=== PATIENT | female | born 1945 | race Caucasian/White ===

== ENCOUNTER 2019-11-04 12:39 | Outpatient (CLI) | payer MEDICARE, BC ==
[~2019-11-04 12:39] MED LIST: Magnevist 469MG/ML 20 ML VIAL ONE
[2019-11-04 13:17] LABS: Estimated GFR-MDRD - POC Greater than 90
--- NOTE | 2019-11-04 14:25 | MRI ---
MRI BRAIN WITH AND WITHOUT IV CONTRAST: 11/04/19 HISTORY: 73-year-old female with essential tremors, ataxia, headaches. COMPARISON: None. FINDINGS: No restricted diffusion is seen. No evidence of infarct, hemorrhage, intra-axial mass, midline shift or abnormal extra-axial fluid collections are seen. The ventricular size is appropriate and the basil ar cisterns patent. There is a right sided 1.5 x 1.5 x 1 cm enhancing extra-axial mass with a dual ta il at the level of the vertex anteriorly, consistent with meningioma. No adjacent edema is seen. Ther e is fluid in the right mastoid air cells. The visualized paranasal sinuses are well aerated. IMPRESSION: 1.5 cm right sided meningioma close to the vertex. POS: JULISSA
== END 2019-11-04 12:40 | disposition home or self-care (01) ==
LOC: BICMRI 12:39
PROVIDERS: ATTEND Psychiatry & Neurology Neurology
DX: G25.0 Essential tremor (principal); R27.0 Ataxia, unspecified; D32.0 Benign neoplasm of cerebral meninges
CPT/HCPCS: 70553; 82565

== ENCOUNTER 2019-12-18 22:20 | Emergency (ER) | payer MEDICARE, BC ==
[2019-12-18] MEDS ORDERED: Morphine 4 MG/ML VIAL ONE (22:59)
--- NOTE | 2019-12-18 23:01 | RAD ---
Left knee 4 views HISTORY: Pain. Fall. FINDINGS: Total knee prosthesis in place with longstem components. The most proximal portion of the f emoral stem is not included. No bud-hardware lucency. Osseous structures are demineralized. No acute fracture or fluid distention of the suprapatellar bursa. Prominent calcification over the arterial structures. IMPRESSION : Left knee prosthesis. No acute osseous abnormalities are demonstrated. Osteoporosis. Atherosclerosis.
--- NOTE | 2019-12-18 23:02 | RAD ---
Left ankle 3 views HISTORY: Injury. FINDINGS: Ankle mortise and talar dome are intact. Compression sideplate and multiple screws transfix the distal fibula. 2 long lag screws transfix the medial malleolus. No bud-hardware lucency. No acute fracture or dislocation are apparent. Moderate degenerative changes of the hindfoot and midf oot apparent. IMPRESSION : Postoperative changes about the left ankle. No acute osseous abnormalities are demonstrated.
== END 2019-12-19 00:22 | disposition home or self-care (01) ==
LOC: ERS 22:20
DX: S93.402A Sprain of unspecified ligament of left ankle, initial encounter (principal); S80.02XA Contusion of left knee, initial encounter; E11.9 Type 2 diabetes mellitus without complications; E78.5 Hyperlipidemia, unspecified; I10 Essential (primary) hypertension; Z79.899 Other long term (current) drug therapy; W18.30XA Fall on same level, unspecified, initial encounter
CPT/HCPCS: 93005; 96372; J2270

== ENCOUNTER 2020-09-06 08:09 | Outpatient (CLI) | payer MEDICARE, BC ==
[2020-09-06 12:19] LABS: #Basophils 0.1 10x3/uL (0.0-0.2); #Eosinphils 0.8 10x3/uL (0.0-0.5); #Monocytes 0.8 10x3/uL (0.0-1.1); #Neutrophils 4.3 10x3/uL (1.5-8.4); %Basophils 0.7 % (0.0-2.0); %Eosinophils 10.2 % (0.0-6.0); %Lymphocytes 25.9 % (18.0-47.0); %Monocytes 9.8 % (0.0-10.0); %Neutrophils 52.5 % (40.0-75.0); Mean Corpuscular HGB CONC 30.2 g/dL (32.0-36.0); Mean Corpuscular Hemoglobin 28.5 pg (27.0-33.0); Mean Corpuscular Volume 94.3 fl (81.6-98.3); Platelet Count 201 10x3/uL (150-450); RBC Distribution Width 15.6 % (11.5-14.5); Red Blood Cell (RBC) Count 4.21 10x6/uL (3.90-5.03); White Blood Cell (WBC) Count 8.2 10x3/uL (3.5-10.5)
[2020-09-06 12:42] LABS: ALT (SGPT) 59 U/L (8-55); AST (SGOT) 37 U/L (5-34); Albumin 3.6 g/dL (3.4-4.8); Alkaline Phosphatase 129 U/L (40-110); Anion Gap 17 mmol/L (10-20); BUN (Urea Nitrogen) 34 mg/dL (9.8-20.1); Bilirubin, Total 0.4 mg/dL (0.2-1.2); Calc. Creatinine Clearance 0 mL/min (70-130); Calcium 7.7 mg/dL (7.8-10.44); Carbon Dioxide 24 mmol/L (23-31); Cardiac Risk 2.3 (Less than 4.5); Chloride 102 mmol/L (98-107); Cholesterol 164 mg/dl (< 200 Desired); Globulin 2.9 g/dL (2.4-3.5); Glucose 226 mg/dL (83-110); LDL Cholesterol, Calculated 77 mg/dL; Potassium 4.2 mmol/L (3.5-5.1); Protein, Total 6.5 g/dL (5.8-8.1); Sodium 139 mmol/L (136-145); Triglycerides 86 mg/dL (Less than 150)
[2020-09-06 13:16] LABS: HDL Cholesterol 72 mg/dL (>60 Neg Risk)
[2020-09-06 18:28] LABS: SARS-CoV-2 PCR by NAA Not Detected (NotDetected)
== END 2020-09-06 08:10 | disposition home or self-care (01) ==
LOC: LABBT 08:09
PROVIDERS: ATTEND Internal Medicine Cardiovascular Disease
DX: Z01.812 Encounter for preprocedural laboratory examination (principal); R07.9 Chest pain, unspecified; Z20.822 Contact with and (suspected) exposure to COVID-19
CPT/HCPCS: 80053; 80061; 85025; U0003; U0005; 87635

== ENCOUNTER 2020-09-09 05:52 | Day surgery (SDC) | payer MEDICARE, BC ==
[2020-09-08 10:37] VITALS: BMI 51.5
[2020-09-09] MEDS ORDERED: Iopamidol 370 76% 50 ML VIAL FS ONE (10:32)
[2020-09-09] MEDS ORDERED: Iopamidol 370 76% 100 ML VIAL ONE (10:32)
[2020-09-09] MEDS ORDERED: Heparin 10,000 UNITS/ 10 ML VIAL ONE ×2 (11:38→13:02)
[2020-09-09] MEDS ORDERED: Lidocaine 1% (PF) 30 ML VIAL ONE (11:38)
[2020-09-09] MEDS ORDERED: Nitroglycerin 100MG/250ML BOT 250 ML ONE (11:38)
[2020-09-09] MEDS ORDERED: Verapamil 5 MG/2 ML VIAL ONE ×2 (11:38→12:47)
[2020-09-09] MEDS ORDERED: Midazolam HCl 2 mg/2 ml Vial ONE (12:22)
[2020-09-09] MEDS ORDERED: Fentanyl 100 MCG/2 ML VIAL ONE ×3 (12:22→17:46)
[2020-09-09] MEDS ORDERED: Clopidogrel Bisulfate 300 MG TAB ONE (13:11)
[2020-09-09] MEDS ORDERED: hydrALAZINE 20 MG/ML VIAL ONE (16:35)
[2020-09-09] MEDS ORDERED: Fentanyl 100 MCG/2 ML VIAL SLOW IVP SCH (18:00)
[2020-09-09] MEDS ORDERED: hydrALAZINE 20 MG/ML VIAL SLOW IVP SCH (18:00)
== END 2020-09-09 20:40 | disposition home or self-care (01) ==
LOC: CCL 05:52
PROVIDERS: ATTEND Internal Medicine Cardiovascular Disease
PROC: 027034Z Dilation of Coronary Artery, One Artery with Drug-eluting Intraluminal Device, Percutaneous Approach (ICD-10-PCS; principal; 2020-09-09)
PROC: 4A023N7 Measurement of Cardiac Sampling and Pressure, Left Heart, Percutaneous Approach (ICD-10-PCS; 2020-09-09)
PROC: B2111ZZ Fluoroscopy of Multiple Coronary Arteries using Low Osmolar Contrast (ICD-10-PCS; 2020-09-09)
DX: I25.119 Atherosclerotic heart disease of native coronary artery with unspecified angina pectoris (principal); I10 Essential (primary) hypertension; E78.00 Pure hypercholesterolemia, unspecified; M81.0 Age-related osteoporosis without current pathological fracture; E66.9 Obesity, unspecified; Z68.43 Body mass index [BMI] 50.0-59.9, adult; Z79.899 Other long term (current) drug therapy; Z88.0 Allergy status to penicillin; Z88.1 Allergy status to other antibiotic agents; Z88.8 Allergy status to other drugs, medicaments and biological substances; Z91.048 Other nonmedicinal substance allergy status
CPT/HCPCS: 76942; 85347; 92928; 93005; 93458; 99152; 99153; C1874; C9600; J0360; J1644; J2001; J2250; J3010; Q9967

== ENCOUNTER 2021-05-26 08:00 | Outpatient (CLI) | payer MEDICARE, BC | END 2021-05-26 08:01 | disposition home or self-care (01) | LOC: NM 08:00 | PROVIDERS: ATTEND Internal Medicine Endocrinology, Diabetes & Metabolism | DX: E05.90 Thyrotoxicosis, unspecified without thyrotoxic crisis or storm (principal) | CPT/HCPCS: 78014; A9516 ==

== ENCOUNTER 2022-08-30 07:27 | Outpatient (CLI) | payer MEDICARE, BC ==
[2022-08-30] MEDS ORDERED: Iopamidol 370 76% 100 ML VIAL ONE (09:00)
== END 2022-08-30 07:28 | disposition home or self-care (01) ==
LOC: CT 07:27
PROVIDERS: ATTEND Physician Assistant Medical
DX: K52.9 Noninfective gastroenteritis and colitis, unspecified (principal); R63.4 Abnormal weight loss; Z98.84 Bariatric surgery status; Z98.0 Intestinal bypass and anastomosis status; K31.89 Other diseases of stomach and duodenum; K42.9 Umbilical hernia without obstruction or gangrene; K57.30 Diverticulosis of large intestine without perforation or abscess without bleeding; M48.56XD Collapsed vertebra, not elsewhere classified, lumbar region, subsequent encounter for fracture with routine healing
CPT/HCPCS: 74177; 82565

== ENCOUNTER 2022-12-05 07:13 | Outpatient (CLI) | payer MEDICARE, BC ==
[2022-12-05] MEDS ORDERED: Magnevist 469MG/ML 20 ML VIAL ONE (11:16)
== END 2022-12-05 07:14 | disposition home or self-care (01) ==
LOC: BICMRI 07:13
PROVIDERS: ATTEND Internal Medicine Gastroenterology
DX: Z48.815 Encounter for surgical aftercare following surgery on the digestive system (principal); K86.81 Exocrine pancreatic insufficiency; K86.2 Cyst of pancreas; Z98.84 Bariatric surgery status
CPT/HCPCS: 74183; 82565; A9579

== ENCOUNTER 2023-07-08 23:17 | Inpatient (IN) | payer MEDICARE, BC ==
[2023-07-08] MEDS ORDERED: fentaNYL PF 100 MCG/2 ML SYRINGE ONE (23:43)
[2023-07-08] MEDS ORDERED: PROPOFOL 20 ML ONE (23:43)
[2023-07-08] MEDS ORDERED: Lidocaine 2% PF 100 mg/5 ml Syringe ONE (23:48)
[2023-07-09] MEDS ORDERED: Protamine Sulfate 50 MG/5 ML VIAL ONE (01:03)
[2023-07-09] MEDS ORDERED: Calcium Chloride 1 GM/10 ML Abboject SYRINGE ONE (01:05)
[2023-07-09] MEDS ORDERED: Ondansetron PF 4 MG/2 ML Vial ONE (01:07)
[2023-07-09] MEDS ORDERED: Rocuronium Bromide 10 MG/ML (10ML VIAL) ONE (01:07)
[2023-07-09] MEDS ORDERED: diphenhydrAMINE 50 MG/ML VIAL ONE (01:07)
[2023-07-09] MEDS ORDERED: Sodium Bicarb 50 MEQ/50 ML Abboject 8.4% SYRINGE ONE (01:08)
[2023-07-09] MEDS ORDERED: SUGAMMADEX SODIUM 200 MG/2 ML VIAL ONE (01:23)
[2023-07-09] MEDS ORDERED: Acetaminophen 325 MG TAB PO PRN (01:44)
[2023-07-09] MEDS ORDERED: Ondansetron PF 4 MG/2 ML Vial IVP PRN (01:44)
[2023-07-09] MEDS ORDERED: Promethazine HCl 25 MG/ML VIAL IM PRN (01:44)
[2023-07-09] MEDS ORDERED: HYDROcodone/Acetaminophen 5/325 mg Tablet PO PRN (01:44)
[2023-07-09] MEDS ORDERED: fentaNYL 50 mcg/mL 1 mL Vial SLOW IVP PRN (01:44)
[2023-07-09] MEDS ORDERED: Promethazine HCl 25 MG SUPP PR PRN (01:44)
[2023-07-09] MEDS ORDERED: Heparin 10,000 UNITS/ 10 ML VIAL SLOW IVP SCH (01:45)
[2023-07-09] MEDS ORDERED: Heparin 25,000 units/D5W 500 ML IVPB SCH (01:45)
[2023-07-09] MEDS ORDERED: Ondansetron HCl/PF 4 MG/2 ML Vial IVP PRN (01:48)
[2023-07-09 03:18] VITALS: BMI 49.6
[2023-07-09 03:41] LABS: Hemoglobin 14.4 g/dL (12.0-16.0); Platelet Count 174 10x3/uL (130-400)
[2023-07-09] MEDS: CEFAZOLIN 2 GM in Sodium Chloride 0.9% 100 ML IVPB SCH (03:52)
[2023-07-09] MEDS: Sodium Chloride 0.9% 1,000 ML IV SCH (03:52)
[2023-07-09] MEDS: Aspirin Chewable 81 MG TAB PO SCH (08:40)
[2023-07-09] MEDS ORDERED: FLU VACC QS2023(65UP)/MF59C/PF 60 MCG/0.5 ML SYRINGE IM ONE (09:00)
[2023-07-09] MEDS: Heparin 25,000 units/D5W 500 ML IVPB SCH (11:27)
[2023-07-09] MEDS: Midodrine HCl 5 MG TAB PO SCH ×2 (15:31→20:48)
[2023-07-09 17:48] LABS: PTT Greater than 250.0 sec (22.9-36.1)
[2023-07-09 20:04] LABS: PTT Greater than 250.0 sec (22.9-36.1)
[2023-07-09] MEDS: Gabapentin 300 MG CAP PO SCH (20:48)
[2023-07-09] MEDS: Citalopram 20 MG TAB PO SCH (20:49)
[2023-07-09] MEDS: Atorvastatin Calcium 10 MG TAB PO SCH (20:49)
[2023-07-10 05:06] LABS: #Monocytes 0.8 thou/uL (0.11-0.59); #Neutrophils 8.7 thou/uL (1.40-6.50); %Basophils 0.3 % (0.0-1.0); %Eosinophils 0.3 % (0.0-10.0); %Lymphocytes 17.2 % (21.0-51.0); %Monocytes 6.9 % (0.0-10.0); Hemoglobin 11.7 g/dL (12.0-16.0); Mean Corpuscular Hemoglobin 29.5 pg (27.0-31.0); Mean Corpuscular Volume 95.5 fl (78.0-98.0); Mean Platelet Volume 10.9 fL (7.4-10.4); Platelet Count 148 10x3/uL (130-400); Red Blood Cell (RBC) Count 3.96 mill/uL (4.20-5.40); White Blood Cell (WBC) Count 11.6 10x3/uL (4.8-10.8)
[2023-07-10 05:35] LABS: Anion Gap 11 mmol/L (10-20); BUN (Urea Nitrogen) 17 mg/dL (9.8-20.1); Calc. Creatinine Clearance 85 mL/min (70-130); Carbon Dioxide 23 mmol/L (23-31); Chloride 112 mmol/L (98-107); Estimated GFR 65; Glucose 151 mg/dL (83-110); Potassium 4.7 mmol/L (3.5-5.1); Sodium 141 mmol/L (136-145)
[2023-07-10 05:38] LABS: Hematocrit 37.8 % (36.0-47.0)
[2023-07-10 06:23] LABS: PTT Greater than 250.0 sec (22.9-36.1)
[2023-07-10 10:23] LABS: PTT 128.2 sec (22.9-36.1)
[2023-07-10] MEDS: Apixaban 5 MG TAB PO SCH ×2 (12:58→20:16)
[2023-07-10] MEDS: Ipratropium/Albuterol 3 ML NEB NEB PRN (19:43)
[2023-07-11 02:16] LABS: Hematocrit 37.7 % (36.0-47.0); Hemoglobin 11.8 g/dL (12.0-16.0); Platelet Count 140 10x3/uL (130-400)
[2023-07-11 02:56] LABS: Anion Gap 14 mmol/L (10-20); BUN (Urea Nitrogen) 17 mg/dL (9.8-20.1); Calc. Creatinine Clearance 96 mL/min (70-130); Carbon Dioxide 20 mmol/L (23-31); Chloride 112 mmol/L (98-107); Estimated GFR 77; Glucose 139 mg/dL (83-110); Sodium 142 mmol/L (136-145)
[2023-07-11] MEDS: Furosemide 20 MG (2 mL) VIAL SLOW IVP SCH (10:28)
[2023-07-11 12:40] VITALS: BP 136/61; TEMP 98
== END 2023-07-11 13:22 | disposition home health service (06) | DRG 253 ==
LOC: SDC 23:17 → IMCU/EMU 07-09 01:44 → 2SE 07-09 16:52
PROVIDERS: ADMIT Student in an Organized Health Care Education/Training Program; ATTEND Student in an Organized Health Care Education/Training Program
PROC: 04CK0ZZ Extirpation of Matter from Right Femoral Artery, Open Approach (ICD-10-PCS; principal; 2023-07-09)
DX: I74.3 Embolism and thrombosis of arteries of the lower extremities (principal); Z68.42 Body mass index [BMI] 45.0-49.9, adult; E11.51 Type 2 diabetes mellitus with diabetic peripheral angiopathy without gangrene; I70.221 Atherosclerosis of native arteries of extremities with rest pain, right leg; I25.10 Atherosclerotic heart disease of native coronary artery without angina pectoris; E66.9 Obesity, unspecified; E78.5 Hyperlipidemia, unspecified; I10 Essential (primary) hypertension; Z96.642 Presence of left artificial hip joint; I48.0 Paroxysmal atrial fibrillation; I44.0 Atrioventricular block, first degree; Z79.899 Other long term (current) drug therapy; Z95.5 Presence of coronary angioplasty implant and graft; Z90.49 Acquired absence of other specified parts of digestive tract; Z90.710 Acquired absence of both cervix and uterus
CPT/HCPCS: 36415; 36416; 71045; 75635; 80048; 80053; 85014; 85018; 85025; 85049; 85610; 85730; 93306; 94640; 96374; 96375; A4311; J1200; J1644; J1940; J2001; J2405; J2704; J2720; J2930; J3010; J3490; J7050; J7611; J7620; Q9967

== ENCOUNTER 2024-02-27 09:54 | Outpatient (CLI) | payer MEDICARE, BC | END 2024-02-27 09:55 | disposition home or self-care (01) | LOC: BICCT 09:54 | PROVIDERS: ATTEND Psychiatry & Neurology Neurology | DX: G93.89 Other specified disorders of brain (principal); D32.0 Benign neoplasm of cerebral meninges | CPT/HCPCS: 70450 ==

== ENCOUNTER 2024-06-17 07:43 | Outpatient (CLI) | payer MEDICARE, BC ==
[2024-06-17 11:25] LABS: #Basophils 0.05 10x3/uL (0.0-0.2); %Basophils 0.6 % (0.0-1.0); %Eosinophils 4.5 % (0.0-10.0); %Lymphocytes 37.7 % (21.0-51.0); %Monocytes 7.3 % (0.0-10.0); %Neutrophils 49.7 % (42.0-75.0); Hematocrit 44.4 % (36.0-47.0); Mean Corpuscular HGB CONC 31.5 g/dL (32.0-36.0); Mean Corpuscular Hemoglobin 28.9 pg (27.0-31.0); Mean Corpuscular Volume 91.7 fL (78.0-98.0); Mean Platelet Volume 11.5 fL (7.4-10.4); Platelet Count 198 10x3/uL (130-400); RBC Distribution Width 14.9 % (11.5-14.5); Red Blood Cell (RBC) Count 4.84 mill/uL (4.20-5.40)
[2024-06-17 11:38] LABS: INR-International Normal Ratio 1.2
[2024-06-17 11:42] LABS: Bilirubin Negative (Negative); Blood, Urine Negative (Negative); Clarity Turbid (Clear); Glucose, Urine (Dipstick) Normal (Negative); Ketone, Urine Negative (Negative); Leukocyte 500 Leu/uL (Negative); Nitrite 2+ (Negative); Protein, Urine (Dipstick) Negative (Neg-Trace); RBC/HPF 0-3 HPF (0-3); Specific Gravity, Urine 1.013 (1.002-1.036); Squamous Epithelial 0-3 HPF (0-3); Urobilinogen Normal mg/dL (Less than 2); WBC/HPF Greater than 50 HPF (0-3); pH, Urine 5.5 (5.0-9.0)
[2024-06-17 11:51] LABS: Bacteria/HPF 1+ HPF (None Seen)
[2024-06-17 12:23] LABS: Anion Gap 14 mmol/L (10-20); BUN (Urea Nitrogen) 21 mg/dL (9.8-20.1); Calc. Creatinine Clearance 0 mL/min (70-130); Carbon Dioxide 25 mmol/L (23-31); Chloride 103 mmol/L (98-107); Estimated GFR 65; Glucose 138 mg/dL (83-110); Sodium 138 mmol/L (136-145)
== END 2024-06-17 07:44 | disposition home or self-care (01) ==
LOC: LABBT 07:43
PROVIDERS: ATTEND Orthopaedic Surgery
DX: Z01.812 Encounter for preprocedural laboratory examination (principal); M17.11 Unilateral primary osteoarthritis, right knee
CPT/HCPCS: 80048; 81001; 85025; 85610; 87081; 93005; 93010